=== PATIENT | female | born 1960 | race Caucasian/White ===

== ENCOUNTER → 2025-01-12 | Outpatient (CLI) | payer OTHER ==
--- NOTE | 2025-01-13 07:45 | MM ---
Reason for Exam: Screening (asymptomatic). Last screening mammogram was performed 4 month(s) ago. Patient History: Menarche at age 10. Patient has no children. Postmenopausal. Risk Values: Haydee 5 year model risk: 1.9%. NCI Lifetime model risk: 6.7%. Tissue Density: Right: The breasts are heterogeneously dense, which may obscure small masses. Findings: Analyzed By CAD. There is no suspicious group of microcalcifications or new suspicious mass in either breast. Overall Assessment: Benign, BI-RAD 2 Management: Screening Mammogram of both breasts in 6 months. . Patient should continue monthly self-breast exams. A clinical breast exam by your physician is recommended on an annual basis. This exam should not preclude additional follow-up of suspicious palpable abnormalities. Note on Haydee scores and lifetime risk: 1. A Haydee score greater than 3% is considered moderate risk. If this is the case, consider specialist referral to assess eligibility for a risk reducing agent. 2. If overall lifetime risk for the development of breast cancer is 20% or higher, the patient may qualify for future screening with alternating mammogram and breast MRI. [facility], , 01/13/2025 7:42 AM. Electronically signed and approved by: Sorin Palomo M.D. Radiologis
--- NOTE | 2025-01-13 07:50 | BD ---
EXAMINATION TYPE: Axial Bone Density DATE OF EXAM: 01/12/2025 CLINICAL HISTORY: 64 years old Female. ICD-10 CODE: M81.0 AGE RELATED OSTEO , Additional History: Height: 62.25 Weight: 133 FRAX RISK QUESTIONS: Family History (Parent hip fracture): no History of Fracture in Adulthood: no Secondary Osteoporosis: no RISK FACTORS HISTORY OF: Surgery to Spine/Hip(right/left)/Wrist (right/left): no MEDICATIONS: Thyroid Medications: no Osteoporosis Medications: no EXAM MEASUREMENTS: Bone mineral densitometry was performed using the [employer] System. Bone mineral density as measured about the Lumbar spine is: ----- L1-L4(G/cm2): 0.977 T Score Values are as follows: ----- L1: -2.3 ----- L2: -2.0 ----- L3: -1.5 ----- L4: -1.3 ----- L1-L4: -1.7 Z Score Values are as follows: ----- L1: -0.5 ----- L2: -0.3 ----- L3: 0.2 ----- L4: 0.5 ----- L1-L4: 0.1 Bone mineral density baseline Bone mineral density about the R hip (g/cm2): 0.832 Bone mineral density about the L hip (g/cm2): 0.895 T Score values are as follows: -----R Neck: -2.1 -----L Neck: -1.7 -----R Total: -1.4 -----L Total: -0.9 Z Score values are as follows: -----R Neck: -0.5 -----L Neck: -0.1 -----R Total: 0.0 -----L Total: 0.5 Bone mineral density baseline FRAX%s: The graph provided illustrates a 11.8% chance for a major osteoporotic fx and a 2.1% chance f or the hips probability for fx in 10 years time. IMPRESSION: Osteopenia (T Score between -2.5 and -1). There is slightly increased risk of fracture and the patient may be considered for treatment. Re-Screen 2-5 years. NOTE: T-SCORE=SD OF THE YOUNG ADULT MEAN. [facility], , 01/13/2025 7:48 AM
== END | disposition home or self-care (01) ==
LOC: RADMAMWWP 15:33
PROVIDERS: ATTEND Internal Medicine Geriatric Medicine
DX: Z12.31 Encounter for screening mammogram for malignant neoplasm of breast (principal); R92.333 Mammographic heterogeneous density, bilateral breasts; M85.89 Other specified disorders of bone density and structure, multiple sites; Z78.0 Asymptomatic menopausal state
CPT/HCPCS: 77067; 77080